=== PATIENT | female | born 1960 | race Caucasian/White ===

== ENCOUNTER → 2017-01-21 | Outpatient (CLI) | payer BC ==
--- NOTE | 2017-01-21 09:04 | KCIC ---
EXAM: ABDOMINAL ULTRASOUND. HISTORY: Abdominal pain. COMPARISON: None. FINDINGS: Sonographic evaluation of the abdomen was performed. The liver appears normal in parenchymal echotexture. There are no focal lesions. The spleen is mostly obscured but not grossly enlarged. The gallbladder is unremarkable without evidence of stones, wall thickening or pericholecystic fluid. It is partially contracted. There is no sonographic Dye sign. The common duct measures 4-6 mm. No distal obstructing lesion is seen. The visualized portions of the head and body of the pancreas reveal no abnormality. The right kidney measures 10.2 cm. Cortical thickness and echogenicity are preserved. There is no hydronephrosis. The left kidney measures 10.3 cm. Cortical thickness and echogenicity are preserved. There is no hydronephrosis. The visualized portions of the abdominal aorta and inferior vena cava are grossly patent and normal in caliber. IMPRESSION: 1. No cause for pain is identified. Electronically signed by: Chelsie Drake MD (01/21/2017 9:01 AM)
== END | disposition home or self-care (01) ==
LOC: KCIC US 07:45
PROVIDERS: ATTEND Internal Medicine Gastroenterology
DX: R10.9 Unspecified abdominal pain (principal)
CPT/HCPCS: 76700